=== PATIENT | female | born 1985 | race Caucasian/White ===

== ENCOUNTER 2020-12-21 11:34 | Outpatient (REF) | payer BC, SELFPAY ==
[2020-12-21 12:41] LABS: MANUAL DIFF FLAG NO
[2020-12-21 12:43] LABS: Basophils Percent Auto 0.4 % (0-2); Eosinophils Absolute Auto 0.2 X10*3/uL (0.0-0.4); Eosinophils Percent Auto 2.6 % (0-4); Hematocrit 37.3 % (37-47); Hemoglobin 12.6 g/dl (12.0-16.0); Imm Gran Abs Auto 0.03 X10*3/uL (0.00-0.03); Imm Gran Pct Auto 0.4 % (0.0-0.4); Lymphocytes Absolute Auto 1.7 X10*3/uL (1.2-4.9); Lymphocytes Percent Auto 23.4 % (20-40); Mean Corpuscular HGB Conc 33.8 g/dl (31.0-35.0); Mean Corpuscular Hemoglobin 31.7 pg (27.0-33.0); Mean Corpuscular Volume 93.7 fL (80-98); Mean Platelet Volume 10.3 fL (9.4-12.3); Monocytes Absolute Auto 0.5 X10*3/uL (0.1-1.2); Monocytes Percent Auto 7.1 % (2-11); Neutrophils Absolute Auto 4.7 X10*3/uL (2.0-8.3); Neutrophils Percent Auto 66.1 % (45-73); Platelet Count 277 X10*3/uL (160-400); Red Blood Count 3.98 X10*6/uL (4.20-5.50); Red Cell Distribution Width 12.1 % (11.0-16.0)
[2020-12-21 13:31] LABS: Alanine Aminotransferase 12 U/L (0-31); Albumin Level 4.3 g/dL (3.5-5.0); Alkaline Phosphatase 63 U/L (39-117); Anion Gap 13 (12-20); Aspartate Amino Transferase 16 U/L (5-31); Bilirubin Total 0.6 mg/dL (0.0-1.0); Blood Urea Nitrogen 8 mg/dL (9-16); Calcium 8.7 mg/dL (8.4-10.2); Carbon Dioxide 27 mmol/L (22-29); Chloride 104 mmol/L (96-108); Estimated Glomerular Filt Rate > 60; Glucose Random 84 mg/dL (60-115); Iron 95 mcg/dL (30-160); Percent Iron Saturation 39 % (15-50); Potassium 4.2 mmol/L (3.3-5.1); Sodium 140 mmol/L (135-145); Total Iron Binding Capacity 244 mcg/dL (228-428); Total Protein 7.1 g/dL (6.5-8.0); Unsaturated Iron Binding 149 ug/dL
[2020-12-21 13:35] LABS: Vitamin B12 211 pg/mL (200-900)
[2020-12-21 13:53] LABS: Ferritin 69 ng/mL (10-122); Free T4 (Free Thyroxine) 1.01 ng/dL (0.71-1.85); Thyroid Stimulating Hormone 1.28 uIU/mL (0.32-4.0); Vitamin D 25-OH Total 10.3 ng/mL (>30)
== END 2020-12-21 11:35 | disposition home or self-care (01) ==
LOC: HO.LDS 11:34
PROVIDERS: Visit Provider Internal Medicine
DX: Z00.00 Encounter for general adult medical examination without abnormal findings (principal)
CPT/HCPCS: 36415; 80053; 82306; 82607; 82728; 83540; 84439; 84443; 85025

== ENCOUNTER 2022-12-31 07:15 | Outpatient (REF) | payer BC, SELFPAY ==
--- NOTE | ~2022-12-31 | MR_ITS ---
EXAMINATION: MRI OF THE BRAIN WITHOUT CONTRAST CLINICAL INFORMATION: Altered mental status. COMPARISON: There are no prior studies available for comparison. TECHNIQUE: MRI of the brain was obtained using routine sequences without contrast. FINDINGS: No diffusion abnormalities are identified to suggest an acute or subacute infarct. No mass effect or midline shift is seen. The ventricles and sulci are normal in size. There are a few nonspecific foci of hyperintense T2 and FLAIR signal in the deep white matter. No extra-axial fluid collections are seen. The brainstem and cerebellum are normal. No pathologic magnetic susceptibility artifact is identified on the gradient refocused acquisition. The craniovertebral junction, marrow signal, and midline structures are normal. The major intracranial flow-voids at the level of the hoh of Duran are preserved. The dural venous sinus flow-voids are maintained. There is trace fluid in the inferior mastoid air cells bilaterally. There is mucoperiosteal thickening in the bilateral maxillary, ethmoid and frontal sinuses, and there is opacification/cyst in the sphenoid sinus. MR/MR head/brain wo con IMPRESSION: 1. There are no acute bleeds or infarcts. No masses are demonstrated. 2. There is pansinus disease, most severe in the bilateral ethmoid and sphenoid sinuses.
== END 2022-12-31 07:16 | disposition home or self-care (01) ==
LOC: HO.MRI 07:15
PROVIDERS: PCP Internal Medicine; Visit Provider Internal Medicine
DX: R41.82 Altered mental status, unspecified (principal)
CPT/HCPCS: 70551

== ENCOUNTER 2023-04-29 09:57 | Outpatient (REF) | payer BC, SELFPAY ==
[2023-04-29 13:14] LABS: MANUAL DIFF FLAG NO
[2023-04-29 13:40] LABS: Basophils Absolute Auto 0.1 X10*3/uL (0.0-0.2); Basophils Percent Auto 0.8 % (0-2); Eosinophils Absolute Auto 0.2 X10*3/uL (0.0-0.4); Eosinophils Percent Auto 3.3 % (0-4); Hematocrit 41.3 % (37.0-47.0); Hemoglobin 13.2 g/dl (12.0-16.0); Imm Gran Abs Auto 0.03 X10*3/uL (0.00-0.03); Imm Gran Pct Auto 0.4 % (0.0-0.4); Lymphocytes Absolute Auto 1.4 X10*3/uL (1.2-4.9); Lymphocytes Percent Auto 19.4 % (20-40); Mean Corpuscular Hemoglobin 30.4 pg (27.0-33.0); Mean Corpuscular Volume 95.2 fL (80.0-98.0); Monocytes Absolute Auto 0.6 X10*3/uL (0.1-1.2); Monocytes Percent Auto 7.9 % (2-11); Neutrophils Absolute Auto 4.9 x10*3/uL (2.0-8.3); Neutrophils Percent Auto 68.2 % (45-73); Platelet Count 290 X10*3/uL (160-400); Red Blood Count 4.34 X10*6/uL (4.20-5.50); Red Cell Distribution Width 12.1 % (11.0-16.0); White Blood Count 7.3 X10*3/uL (4.8-10.8)
[2023-04-29 14:00] LABS: Alanine Aminotransferase 21 U/L (0-31); Albumin Level 4.3 g/dL (3.5-5.0); Alkaline Phosphatase 70 U/L (39-117); Anion Gap 14 (12-20); Aspartate Amino Transferase 17 U/L (5-31); Bilirubin Total 0.6 mg/dL (0.0-1.0); Blood Urea Nitrogen 8 mg/dL (9-16); Calcium 9.4 mg/dL (8.4-10.2); Carbon Dioxide 23 mmol/L (22-29); Chloride 108 mmol/L (96-108); Cholesterol 154 mg/dL; Estimated Glomerular Filt Rate > 60; Glucose Random 87 mg/dL (60-115); HDL Cholesterol 51 mg/dL; LDL Cholesterol Calculated 92 mg/dl; Potassium 4.3 mmol/L (3.3-5.1); Sodium 141 mmol/L (135-145); Total Protein 7.6 g/dL (6.5-8.0); Triglycerides 56 mg/dL
[2023-04-29 14:21] LABS: Vitamin D 25-OH Total 35.2 ng/mL (>30)
[2023-04-29 14:26] LABS: Folate 5.9 ng/mL (> or = 4.0); Vitamin B12 359 pg/mL (200-900)
== END 2023-04-29 09:58 | disposition home or self-care (01) ==
LOC: HO.MANLDS 09:57
PROVIDERS: Visit Provider Internal Medicine
DX: Z00.00 Encounter for general adult medical examination without abnormal findings (principal)
CPT/HCPCS: 36415; 80053; 80061; 82306; 82607; 82746; 85025

== ENCOUNTER 2024-11-05 15:56 | Emergency (ER) | payer BC, SELFPAY ==
--- NOTE | ~2024-11-05 | US_ITS ---
CLINICAL HISTORY: bilateral lower leg swelling, DVT Venous duplex ultrasound bilateral lower extremity Comparison: None Findings: The visualized deep veins are fully compressible with normal Doppler color flow and spectral tracings. No popliteal cyst. Limited visualization of the right peroneal veins. IMPRESSION: 1. Negative for bilateral lower extremity deep vein thrombosis of the visualized veins. This document has been electronically signed by: Maria Teresa Ibarra MD on 11/05/2024 18:19:03
[2024-11-05 15:59] VITALS: BP 127/94; PULSE 94; RESP 16; TEMP 36.4; O2SAT 100; BMI 26.8
--- NOTE | 2024-11-05 16:00 | ED.GENADULT ---
HPI - General Adult General Chief complaint: Extremity Problem Stated complaint: feet swelling Time Seen by Provider: 11/05/24 17:37 Source: patient Mode of arrival: ambulatory Limitations: no limitations History of Present Illness ED Provider: Dr. Zuri De Jesus [facility] narrative: Patient comes to emergency room complaining of bilateral lower extremity edema. Patient states that she has no significant pain. denies any chest pain or shortness of breath, denies orthopnea. Patient known to use estrogen since patient recently got a hysterectomy. patient states that she has had issues with extremity edema in the past, patient states that she has been trying to use compression stockings, leg elevation without any relief. Patient has never tried any oral medications Related Data Previous Rx's ?Medication ?Instructions ?Recorded furosemide 40 mg tablet (Lasix) 40 mg PO DAILY #6 tabs 11/05/24 Allergies Allergy/AdvReac Type Severity Reaction Status Date / Time No Known Allergies Allergy Verified 11/05/24 16:03 Review of Systems Review of Systems: Constitutional : No Weight loss, No Fever, No Chills, No Night Sweats, No Fatigue, No Malaise ENT/Mouth : No Hearing loss, No Ear Pain, No Nasal Congestion, No Sinus Pain, No Hoarseness, No sore throat, No Rhinorrhea, No Swallowing Difficulty Eyes: No Eye Pain, No Swelling, No Redness, No Foreign Body, No Discharge, No Vision Changes Cardiovascular : No Chest Pain, No SOB, No Dyspnea on Exertion, No Orthopnea, No Edema, No Palpitations Respiratory : No Cough, No Sputum, No Wheezing, No Smoke Exposure, No Dyspnea Gastrointestinal : No Nausea, No Vomiting, No Diarrhea, No Constipation, No abdominal Pain, No Hematochezia, No Melena Genitourinary : no irregular bleeding, No Dysuria, No Urinary Frequency, No Hematuria, No Urinary Incontinence, No Urgency, No Flank Pain, No Urinary Flow Changes, No Hesitancy Musculoskeletal : complaining of bilateral lower extremity edema especially around the feet,No joint pain, No Myalgias, No Joint Swelling Skin : No Skin Lesions, No rash Neuro : No Weakness, No Numbness, No Paresthesias, No Loss of Consciousness, No Dizziness, No Headache Psych : No Anxiety/Panic, No Depression, No SI/HI/AH/VH, No Social Issues, Heme/Lymph: No Bruising, No Bleeding,No Lymphadenopathy Endocrine : No Polyuria, No Polydipsia, No Temperature Intolerance [facility] Social History Social History Advance Directives: No Advance Directives Information Provided: No Physical Exam ED Vital Signs: Vital Signs - 24 hr 11/05/24 15:59 11/05/24 18:07 Temperature 97.5 F Pulse Rate 94 Respiratory Rate 16 Blood Pressure 127/94 H 127/94 H Pulse Oximetry 100 Oxygen Delivery Method Room Air BMI result Body Mass Index 26.8 Const Other: Appearance: Alert. Oriented X3. No acute distress. Eyes: Pupils equal, round and reactive to light. ENT: Pharynx normal. Neck: Normal inspection. Neck supple. No lymph nodes noted. No crepitus CVS: Normal heart rate and rhythm. Pulses normal. Normal S1 and S2 Respiratory: No respiratory distress. Breath sounds normal. No Wheezing. No rales Abdomen: Soft and nontender. No rigidity. No distention. Skin: Skin warm and dry. Normal skin color. Normal skin turgor. Extremities: +3 lower extremity edema, especially around the feet and a bit around the ankles, minimal calf tenderness to palpation. No Lacerations. No Rash Neuro: Oriented X 3. No motor deficit. No sensory deficit. Moving all extremities. No slurred speech. CN 2 through 12 grossly intact Psych: calm, cooperative, normal affect Course Course Course Narrative: RME performed by Savannah Edouard PA-C. Patient is a 38 year old assigned female at presenting to the emergency department with bilateral foot swelling. Patient states she only has a history of a total hysterectomy for which she is on estrogen. 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 Patient states that she has tried compressing and elevating her lower legs but nothing has made the swelling better. Detailed physical exam and review of systems are deferred to the welfare director. EKG, labs, imaging, and swabs ordered. Patient placed back in the waiting room pending room availability and results. Medications Administered Discontinued Medications Generic Name Dose Route Start Last Admin Trade Name Freq PRN Reason Stop Dose Admin Furosemide 40 mg 11/05/24 17:53 11/05/24 18:07 Furosemide 40 Mg Tablet PO 11/05/24 17:54 40 mg ONCE ONE Administration Protocol Medical Decision Making Medical Decision Making [facility] Narrative: my interpretation of labs: Normal hematology and chemistry, normal BNP ultrasound negative for DVT patient was given p.o. Lasix in the emergency room. Patient's legs were Rakesh wrapped lower extremity likely secondary to venous insufficiency versus medication side effect. CHF is not suspected, Patient instructed to follow-up with the primary care physician Lab Data MDM Lab Attestation statement: I reviewed the patient's lab results. 11/05/24 16:16 11/05/24 16:16 Labs: Lab Results 11/05/24 Range/Units 16:16 WBC 9.7 (4.8-10.8) X10*3/uL RBC 3.97 L (4.20-5.50) X10*6/uL Hgb 12.3 (12.0-16.0) g/dl Hct 36.3 L (37.0-47.0) % MCV 91.4 (80.0-98.0) fL MCH 31.0 (27.0-33.0) pg MCHC 33.9 (31.0-35.0) g/dl RDW 12.3 (11.0-16.0) % Plt Count 277 (160-400) X10*3/uL MPV 9.7 (9.4-12.3) fL Immature Gran % (Auto) 0.4 (0.0-0.4) % Neut % (Auto) 71.0 (45-73) % Lymph % (Auto) 17.9 L (20-40) % Luce % (Auto) 7.2 (2-11) % Eos % (Auto) 2.9 (0-4) % Baso % (Auto) 0.6 (0-2) % Lymph # (Auto) 1.7 (1.2-4.9) X10*3/uL Luce # (Auto) 0.7 (0.1-1.2) X10*3/uL Eos # (Auto) 0.3 (0.0-0.4) X10*3/uL Baso # (Auto) 0.1 (0.0-0.2) X10*3/uL Abs Immat Gran (auto) 0.04 H (0.00-0.03) X10*3/uL Absolute Neuts (auto) 6.9 (2.0-8.3) x10*3/uL Absolute Nucleated RBC 0.000 (0.0-0.012) X10*3/uL Nucleated RBC % (auto) 0.0 (0.0-0.2) /100WBC PT 11.5 (10.9-12.4) SEC INR 1.0 (0.9-1.1) APTT 27.9 (26.0-36.8) SEC Sodium 143 (135-145) mmol/L Potassium 4.3 (3.3-5.1) mmol/L Chloride 108 (96-108) mmol/L Carbon Dioxide 27 (22-29) mmol/L Anion Gap 12 (12-20) BUN 8 L (9-16) mg/dL Creatinine 0.72 (0.5-1.4) mg/dL Estim Creat Clear Calc 139.9 Estimated GFR > 60 Random Glucose 93 (60-115) mg/dL Calcium 8.9 (8.4-10.2) mg/dL Magnesium 2.0 (1.6-2.6) mg/dL Total Bilirubin 0.4 (0.0-1.0) mg/dL AST 46 H (5-31) U/L ALT 54 H (0-31) U/L Alkaline Phosphatase 74 (39-117) U/L B-Natriuretic Peptide 19 (<100) pg/mL Total Protein 7.5 (6.5-8.0) g/dL Albumin 3.9 (3.5-5.0) g/dL Influenza Type A (PCR) NEGATIVE (Negative) Influenza Type B (PCR) NEGATIVE (Negative) RSV RNA Qual (PCR) NEGATIVE (Negative) SARS-CoV-2 RNA (RT-PCR) NEGATIVE (Negative) Independent Interpretation I performed an independent interpretation of an: Ultrasound Interpretation: The visualized deep veins are fully compressible with normal Doppler color flow and spectral tracings. No popliteal cyst. Limited visualization of the right peroneal veins. IMPRESSION: 1. Negative for bilateral lower extremity deep vein thrombosis of the visualized veins. Discharge Plan Discharge Clinical Impression: Lower extremity edema Patient Disposition: Home, Self-Care Instructions: Leg Edema (ED) Additional Instructions: Please follow-up with your primary care physician tomorrow. If you have any worsening or new symptoms, please return to the emergency room or call 911 Prescriptions: New furosemide [Lasix] 40 mg tablet 40 mg PO DAILY Qty: 6 0RF Stand Alone Forms: Work/School Release Print Language: Venezuelan
--- NOTE | 2024-11-05 16:03 | ECG_ITS ---
Test Reason : SWELLING Blood Pressure : */* mmHG Vent. Rate : 84 BPM Atrial Rate : 84 BPM P-R Int : 156 ms QRS Dur : 78 ms QT Int : 370 ms P-R-T Axes : 42 60 39 degrees QTcB Int : 437 ms Normal sinus rhythm Nonspecific ST abnormality Abnormal ECG No previous ECGs available Referred By: Savannah Edouard Electronically Signed By: Andriy Richardson
[2024-11-05 16:26] LABS: MANUAL DIFF FLAG NO
[2024-11-05 16:28] LABS: Basophils Absolute Auto 0.1 X10*3/uL (0.0-0.2); Basophils Percent Auto 0.6 % (0-2); Eosinophils Absolute Auto 0.3 X10*3/uL (0.0-0.4); Eosinophils Percent Auto 2.9 % (0-4); Hematocrit 36.3 % (37.0-47.0); Hemoglobin 12.3 g/dl (12.0-16.0); Imm Gran Abs Auto 0.04 X10*3/uL (0.00-0.03); Imm Gran Pct Auto 0.4 % (0.0-0.4); Lymphocytes Absolute Auto 1.7 X10*3/uL (1.2-4.9); Lymphocytes Percent Auto 17.9 % (20-40); Mean Corpuscular HGB Conc 33.9 g/dl (31.0-35.0); Mean Corpuscular Volume 91.4 fL (80.0-98.0); Mean Platelet Volume 9.7 fL (9.4-12.3); Monocytes Absolute Auto 0.7 X10*3/uL (0.1-1.2); Monocytes Percent Auto 7.2 % (2-11); Neutrophils Absolute Auto 6.9 x10*3/uL (2.0-8.3); Platelet Count 277 X10*3/uL (160-400); Red Blood Count 3.97 X10*6/uL (4.20-5.50); Red Cell Distribution Width 12.3 % (11.0-16.0); White Blood Count 9.7 X10*3/uL (4.8-10.8)
[2024-11-05 16:34] LABS: Prothrombin Time 11.5 SEC (10.9-12.4)
[2024-11-05 16:37] LABS: Partial Thromboplastin Time 27.9 SEC (26.0-36.8)
[2024-11-05 17:04] LABS: Alanine Aminotransferase 54 U/L (0-31); Albumin Level 3.9 g/dL (3.5-5.0); Anion Gap 12 (12-20); Aspartate Amino Transferase 46 U/L (5-31); Bilirubin Total 0.4 mg/dL (0.0-1.0); Blood Urea Nitrogen 8 mg/dL (9-16); Calcium 8.9 mg/dL (8.4-10.2); Carbon Dioxide 27 mmol/L (22-29); Chloride 108 mmol/L (96-108); Creatinine Clr Calc Pharmacy 139.9; Estimated Glomerular Filt Rate > 60; Glucose Random 93 mg/dL (60-115); Potassium 4.3 mmol/L (3.3-5.1); Sodium 143 mmol/L (135-145); Total Protein 7.5 g/dL (6.5-8.0)
[2024-11-05 17:35] LABS: Alkaline Phosphatase 74 U/L (39-117)
[2024-11-05 17:39] LABS: Influenza A PCR NEGATIVE (Negative); Influenza B PCR NEGATIVE (Negative); Resp Syncy Virus RNA Qual PCR NEGATIVE (Negative); SARS COV2 PCR INHOUSE NEGATIVE (Negative)
[2024-11-05 18:07] VITALS: BP 127/94
[2024-11-05] MEDS: Furosemide 40 MG TABLET PO (18:07)
[2024-11-05 18:53] LABS: B Type Natriuretic Peptide 19 pg/mL (<100)
[2024-11-05 19:44] VITALS: BP 127/94; PULSE 84; RESP 16; TEMP 36.8; O2SAT 98
== END 2024-11-05 19:44 | disposition home or self-care (01) ==
PROVIDERS: Physician Assistant Medical; Emergency Provider Emergency Medicine; PCP Internal Medicine
DX: R60.0 Localized edema (principal); Z03.818 Encounter for observation for suspected exposure to other biological agents ruled out; M79.662 Pain in left lower leg; M79.661 Pain in right lower leg; Z90.710 Acquired absence of both cervix and uterus; Z79.890 Hormone replacement therapy
CPT/HCPCS: 0241U; 80053; 83735; 83880; 85025; 85610; 85730; 93005; 93970; 99283; 99284

== ENCOUNTER → 2024-11-05 16:03 | Outpatient (BNV) | payer BC, SELFPAY | PROVIDERS: Emergency Provider Emergency Medicine; PCP Internal Medicine; Visit Provider Radiology Diagnostic Radiology | DX: R22.43 Localized swelling, mass and lump, lower limb, bilateral (principal) | CPT/HCPCS: 93970 ==

== ENCOUNTER → 2024-11-05 16:03 | Outpatient (BNV) | payer BC, SELFPAY | PROVIDERS: Emergency Provider Emergency Medicine; PCP Internal Medicine; Visit Provider Internal Medicine Cardiovascular Disease | DX: R94.31 Abnormal electrocardiogram [ECG] [EKG] (principal); R22.9 Localized swelling, mass and lump, unspecified | CPT/HCPCS: 93010 ==

== ENCOUNTER 2025-07-22 07:42 | Outpatient (REF) | payer BC, SELFPAY ==
--- NOTE | ~2025-07-22 | XR_ITS ---
EXAMINATION: XR SACRUM AND COCCYX CLINICAL INFORMATION: SACROCOCCYGEAL DISPRDER COMPARISON: None available. TECHNIQUE: 2 views of the sacrum and 2 views of the coccyx were obtained. FINDINGS: There is normal symmetric bilateral SI joints. No visible acute fracture, dislocation or lytic process involving the sacrum or visualized pelvic bones. The soft tissues are normal. There is minimal levoscoliosis or positional lumbosacral joint. XR/XR sacrum coccyx min 2V IMPRESSION: Mild levoscoliosis lumbosacral joint. No visible acute fracture or dislocation involving sacrum. SI joints are normal. Electronically signed by: Frederick Lindsay MD 07/24/2025 07:22 AM EDT
--- OUTSIDE RECORDS SUMMARY | 2025-07-22 07:45 | XMS_ITS | Encounter Summary ---
Author Organization [facility] Address [address] [place] [phone] Phone Care Team Providers Care Sheet Folder Name Role Phone Amarilis Giovanni Mcmullen DO Unavailable Javier Soriano MD Unavailable Giovanni Olmos DO Primary Care Provider [phone] Encounter Details Date Type Department Care Team (Late st Contact Info) Description 11/30/2018 Ancillary Orders [facility], X-Ray - [facility] [address] [place] [address] Maegan Johnston, TAMELA 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 Mild soft tissue swelling in the lower prepatellar and infrapatellar soft tissues could be related to soft tissue contusion and needs clinical correlation. POS - [id number] Narrative 11/30/2018 6:49 PM EST HISTORY: Bilateral knee pain after falling on ice. COMPARISON: None FINDINGS: 4 views of both knees were performed. No fracture or malalignment detected. Trace joint effusions without evidence of lipohemarthrosis. Mild soft tissue swelling in the lower prepatellar and infrapatellar soft tissues bilaterally. Joint spaces are preserved. No destructive bone lesion. No abnormal soft tissue calcifications. Procedure Note Ranjith Malik MD - 11/30/2018 HISTORY: Bilateral knee pain after falling on ice. COMPARISON: None FINDINGS: 4 views of both knees were performed. No fracture or malalignment detected. Trace joint effusions withoutevidence of lipohemarthrosis. Mild soft tissue swelling in the lowerprepatellar and infrapatellar soft tissues bilaterally. Joint spaces arepreserved. No destructive bone lesion. No abnormal soft tissuecalcifications. IMPRESSION: No fracture detected. Mild soft tissue swelling in the lower prepatellarand infrapatellar soft tissues could be related to soft tissue contusionand needs clinical correlation. POS - [id number] December Vickie RAPP IMG XR LOWER EXTREMITY Final Result documented in this encounter Visit Diagnoses Diagnosis Right knee pain, unspecified chronicity Left knee pain, unspecified chronicity Right knee pain, unspecified chronicity Left knee pain, unspecified chronicity documented in this encounter Care Teams Sheet Folder Relationship Specialty Start Date End Date Giovanni Olmos DO [address] [place] [address], [place] [address] PCP - General 10/01/17 Giovanni Olmos DO [address] [facility] [place] [address] [email or web address] Historical LMR Provider 07/16/17 10/05/21 Javier Soriano MD [address] [place] [id number] [email or web address] Historical LMR Provider 07/16/17 10/05/21 documented as of this encounter Additional Source Comments The information contained in this document represents components of the legal health record. It is not the complete legal health record.[facility]
--- OUTSIDE RECORDS SUMMARY | 2025-07-22 07:45 | XMS_ITS | Encounter Summary ---
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 Not on file Not on file student Not on file Not on file Not on file documented as of this encounter Plan of Treatment Not on file documented as of this encounter Visit Diagnoses Not on filedocumented in this encounter Care Teams Joiners Supervisor Relationship Specialty Start Date End Date Giovanni Olmos DO [address] [facility], [facility] [address] [place] [address] PCP - General 10/01/17 Giovanni Olmos DO [address] [place] [address] [place] [address] Historical LMR Provider 07/16/17 10/05/21 Javier Soriano MD [address] [facility] [address] [place] [address] Historical LMR Provider 07/16/17 10/05/21 documented as of this encounter Additional Source Comments The information contained in this document represents components of the legal health record. It is not the complete legal health record.[facility]
--- OUTSIDE RECORDS SUMMARY | 2025-07-22 07:45 | XMS_ITS | Clinical Summary ---
Author Organization [facility] Address [address] [place] [id number] Phone Care Team Providers Care Transverse Abdominal Muscle Nurse Name Role Phone Damariangie Giovanni Mcmullen DO Primary Care Provider [phone] Allergies No known active allergies Medications LORazepam (ATIVAN) 0.5 MG tablet Take 1 tablet by mouth 3 (three) times a day as needed. Active acetaminophen (TYLENOL) 325 mg tablet Take 2 tablets (650 mg total) by mouth every 6 (six) hours as needed. 06/16/2024 Active ibuprofen (ADVIL,MOTRIN) 200 MG tablet Take 3 tablets (600 mg total) by mouth every 6 (six) hours as needed for pain (specific location in comments). 06/16/2024 Active estradioL (ESTRACE) 0.5 MG tabletIndicatio ns:Surgical menopause Take 1 tablet (0.5 mg total) by mouth daily. 30 tablet 3 05/02/2025 Active Active Problems Problem Noted Date Diagnosed Date Pelvic floor tension 01/18/2025 Overview (01/18/2025): needing to splint to achieve a bowel movement since with delivery 14 years ago Tension of pelvic floor on exam left greater than right Assessment & Plan (01/18/2025 5:44 PM EDT): May benefit from learning techniques more to relax the pelvic floor that might facilitate easier bowel habits. Also suggest elevating feet on a stool when trying to have a bowel movement. Lower abdominal pain 01/18/2025 Overview (01/18/2025): Pain does not localize to the pelvic on bimanual exam. Pelvic floor is nontender though there may be some tension left more than right Assessment & Plan (01/18/2025 5:43 PM EDT): Suspect this is more musculoskeletal in origin, she will follow-up with her primary for that. 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 Thacker; voids on a schedule to prevent retention Resolved Problems Problem Noted Date Diagnosed Date Resolved Date Endometriosis 05/24/2024 01/18/2025 Overview (08/03/2024): Seen at time of laparoscopic bilateral salpingectomy. Scheduled for hysterectomy and BSO 06/16/2024: Performed. Pain resolved at time of post-op visit Current mild episode of may r depressive disorder without prior episode 04/14/2023 04/14/2023 3 Moderate recurrent major depression 02/28/2022 04/14/2023 IUD (intrauterine device) in place 05/28/2018 02/05/2023 Overview (05/28/2018): Mirena 05/28/18 Immunizations Immunization Administration Dates Next Due COVID-19 (Pre-07/20) Moderna Vaccine, mRNA, PF 12/16/2020,11/25/2020,11/14/2020 INFLUENZA, SPLIT VIRUS, TRIV ALENT W/ PRESERVATIVE IM 08/09/2010,08/09/2010 Influenza Quadrivalent w/ Preservative IM 2019 Influenza, Unspecified Formulation 07/31/2022, MMR 03/31/2013 Tdap 12/27/2020,01/18/2013,09/28/2010 Family History Medical History Relation Comments Cardiovascular disease Father Hypertension Father No Known Problems Mother Premature Son on spectrum due to being premature @ 28wks Relation Status Comments Brother Alive Father Alive Mother Alive Son Alive Social History Tobacco Use Types Packs/Day Years Used Date Smoking Tobacco: Never Smokeless Tobacco: Never Tobacco Cessation:Counseling Given: Not Answered Alcohol Use Standard Drinks/Week Comments No 0 (1 standard drink = 0.6 oz pur e alcohol) Education Answer Date Recorded Are you interested in more education? Not on joseph e 01/23/2023 Are you concerned about learning? Not on file 01/23/2023 No 01/23/2023 No 01/23/2023 Digital Access Answer Date Recorded No 02/18/2023 No 02/18/2023 Reliable internet access at home? Not on file 02/18/2023 Device with a working camera? Not on file Intimate Partner Violence Answer Date R ecorded Are you denied basic needs s uch as food, clothing, or medical care? No 06/16/2024 In the past 12 months have y ou been in a relationship with a person who hurts, threatens, or tries to control you? No 06/16/2024 Are you denied basic needs s uch as food, clothing, or medical care? No 06/16/2024 In the past 12 months have y ou been in a relationship with a person who hurts, threatens, or tries to control you? 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 on file Not on file student Not on file Not on file Not on file Last Filed Vital Signs Vital Sign Reading Time Taken Comments Blood Pressure 109/77 01/24/2025 5:06 PM EDT Pulse 84 01/24/2025 5:06 PM EDT Temperature 36.9 C (98.4 F) 01/24/2025 5:06 PM EDT Respiratory Rate 18 01/24/2025 5:06 PM EDT Oxygen Saturation 100% 01/24/2025 5:06 PM EDT Inhaled Oxygen Concentration - - Weight 92.5 kg (204 lb) 01/24/2025 5:06 PM EDT Height 182.9 cm (6') 01/24/2025 5:06 PM EDT Body Mass Index 27.67 01/24/2025 5:06 PM EDT Plan of Treatment Health Maintenance Due Date Last Done Comments DEPRESSION SCREENING 1999 HEPATITIS C SCREENING 11/27/2005 HIV ONE-TIME SCREENING (18-65 YEARS) 11/27/2005 SCREENING FOR DIABETES 11/27/2022 INFLUENZA VACCINE (#1) 2025 , 05/29/2020, 07/17/2019, Additional history exists COVID-19 VACCINE ( season) 2025 12/16/2020, 11/25/2020, 11/14/2020, Additional history exists PAP SMEAR 02/05/2026 02/05/2023, 06/29, 07/26/2018 Adult Td,Tdap Booster 12/27/2030 12/27/2020 , 01/18/2013, 09/28/2010 SMOKING STATUS SCREENING (Once After 26 Yrs) Completed 01/18/2025 HEPATITIS A VACCINES Aged Out No long er eligible based on patient's age to complete this topic HIB VACCINES Aged Out No longer eligi ble based on patient's age to complete this topic MENINGOCOCCAL VACCINES (ACWY) Aged Out No longer eligible based on patient's age to complete this topic MENINGOCOCCAL VACCINES (B) Aged Out N o longer eligible based on patient's age to complete this topic PNEUMOCOCCAL VACCINES (0-49 years) Aged Out No longer eligible based on patient's age to complete this topic Medical Devices Not on file Procedures Procedure Name Priority Date/Time Associated Diagnosis Comments PAP TEST Routine 02/05/2023 12:00 AM EDT from Last 3 Months or Most Recently Relevant to Health Maintenance Results * Pap Test (02/05/2023 12:00 AM EDT) 02/05/2023 02/06/2023 9:1 5 AM EDT Narrative SEE NARRATIVE - 02/11/2023 1:05 PM EDT [address] [address] Supervisor Of Research: Gisell Gagnon MD WARPING MACHINE OPERATOR Cytology Report FINAL DIAGNOSIS A. PAP SMEAR (SUREPATH) CE: SPECIMEN ADEQUACY: Satisfactory for evaluation; transformation zone absent/insufficient. INTERPRETATION: NEGATIVE FOR INTRAEPITHELIAL LESION OR MALIGNANCY. Electronically Signed Out By: OLIVIA Petersen(ASCP) OLIVIA Plascencia(ASCP) The Pap test is a screening test primarily for squamous cancers and precursors and has associated false-negative and false-positive results. New technologies such as liquid-based preparations may decrease but will not eliminate all false-negative results. Regular sampling and follow-up of unexplained clinical signs and symptoms are recommended to minimize false negative results. PROCEDURES/ADDENDA HPV Testing (Requested) Ordered Date: 02/06/2023 A. PAP SMEAR (SUREPATH) CE: Human Papilloma Virus Test NEGATIVE for high-risk Human Papilloma Virus types 16, 18, 45 and the Other high risk probe set (Includes 31, 33, 35, 39, 51, 52, 56, 58, 59, 66, 68) Note: Testing performed by [facility] HR-HPV analysis. Clinical correlation is advised. This HPV test was performed at [facility], [address] [place] [address]. This test has been FDA approved for SurePath cervical cytology specimens. The accuracy and precision of this test for all other specimen sources has been verified in the Cytopathology Laboratory of the [facility] and has not been cleared or approved by the U.S. Food and Drug Administration. Clinical correlation is advised. CLINICAL HISTORY Date of Last Menstrual Period: Not Provided Menstrual History: Unknown Other: OLIGOMENORRHEIC DUE TO IUD Contraceptive History: Mirena Other Clinical Conditions: Screening Pap SPECIMEN SOURCE A: PAP SMEAR (SUREPATH) CE Patient Name: CARO ALLEN : 1985 (Age: 37) Sex: F [facility] Date of Collection: 02/05/2023 Date of Reported: 02/11/2023 13:05 Results to: Javier Soriano MD Javier Soriano MD CYTOLOGY ORDERABLES Final Result SEE NARRATIVE from Last 3 Months or Most Recently Relevant to Health Maintenance Insurance [facility] Advance Directives For more information, please contact: [phone] (9AM - 5PM [facility], Thursday-Thursday) Documents on File Type Date Recorded Patient Head Bellhop Captain Expl anation Healthcare Proxy 06/17/2024 3:01 PM * Full Code (Latest Code Status on File) Date Activated Date Inactivated Comments 06/16/2024 9:58 AM Question Answer Comments Code Status Confirmed With: Patient * Full Code Date Activated Date Inactivated Comments 04/21/2023 8:05 AM 06/16/2024 9:58 AM Question Answer Comments Code Status Confirmed With: Patient Care Teams Transverse Abdominal Muscle Nurse Relationship Specialty Start Date End Date Giovanni Olmos DO PCP - General 10/01/17 Additional Source Comments The information contained in this document represents components of the legal health record. It is not the complete legal health record.[facility]
--- OUTSIDE RECORDS SUMMARY | 2025-07-22 07:45 | XMS_ITS | Encounter Summary ---
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 Not on file Not on file Not on file student Not on file Not on file Not on file documented as of this encounter Plan of Treatment Not on file documented as of this encounter Visit Diagnoses Not on filedocumented in this encounter Care Teams Forms Builder Relationship Specialty Start Date End Date Giovanni Olmos DO [address] [facility], [facility] [address] [place] [address] PCP - General 10/01/17 Giovanni Olmos DO [address] [place] [address] [place] [address] Historical LMR Provider 07/16/17 10/05/21 Javier Soriano MD 22 [facility] [address] [place] [address] Historical LMR Provider 07/16/17 10/05/21 documented as of this encounter Additional Source Comments The information contained in this document represents components of the legal health record. It is not the complete legal health record.[facility]
--- OUTSIDE RECORDS SUMMARY | 2025-07-22 07:45 | XMS_ITS | Encounter Summary ---
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 on file Not on file student Not on file Not on file Not on file documented as of this encounter Plan of Treatment Not on file documented as of this encounter Visit Diagnoses Not on filedocumented in this encounter Care Teams Mathematics Department Chair Relationship Specialty Start Date End Date Giovanni Olmos DO 22 [facility], [facility] [address] [place] [address] PCP - General 10/01/17 Giovanni Olmos DO [address] [place] [address] [place] [address] Historical LMR Provider 07/16/17 10/05/21 Javier Soriano MD 22 [facility] [address] [place] [address] Historical LMR Provider 07/16/17 10/05/21 documented as of this encounter Additional Source Comments The information contained in this document represents components of the legal health record. It is not the complete legal health record.[facility]
--- OUTSIDE RECORDS SUMMARY | 2025-07-22 07:45 | XMS_ITS | Data Portability ---
Author Organization [facility] Telehealth Patient Home Address [address] [facility] [place] [address] Assessment Encounter Date Assessment Date Assessment LastModified by Organization Details LastModified Time 12/21/2023 12/21/2023 [id number] [place] [id number] (WATER QUALITY SPECIALIST) MDM MODERATE MUST MEET 2 OUT OF 3 ELEMENTS: PROBLEMS, DATA OR RISK ELEMENT 1: PROBLEMS ADDRESSED 1 OR MORE CHRONIC ILLNESS WITH EXACERBATION OR 2 OR MORE STABLE CHRONIC ILLNESSES OR 1 UNDIAGNOSED NEW PROBLEM OR 1 ACUTE ILLNESS W/SYMPTOMS OR 1 ACUTE COMPLICATED INJURY ELEMENT 2: DATA MUST MEET 1 OF 3 CATEGORIES CATEGORY 1: REVIEW OF PRIOR EXTERNAL NOTES, REVIEW OF RESULTS, ORDERING OF EACH TEST, ASSESSMENT REQUIRING INDEPENDENT HISTORIAN OR CATEGORY 2: INDEPENDENT INTERPRETATION OF TESTS BY ANOTHER PHYSICIAN OR SPECIALIST OR CATEGORY 3: DISCUSSION OF MGT OR TEST INTERPRETATION W/EXTERNAL PHYSICIAN OR SPECIALIST ELEMENT 3: RISK RISK OF COMPLICATIONS AND/OR MORBIDITY OR MORTALITY OF PATIENT MANAGEMENT PROVIDER MUST THOROUGHLY DOCUMENT EACH ELEMENT THAT IS COVERED Not available 12/21/2023 11:57:55 08/23/2024 08/23/2024 [id number] [place] [id number] (WATER QUALITY SPECIALIST) : MDM LOW MUST MEET 2 OF 3 ELEMENTS: PROBLEMS, DATA OR RISK ELEMENT 1: PROBLEMS ADDRESSED (LOW): 2 OR MORE SELF-LIMITED OR MINOR PROBLEMS OR 1 STABLE CHRONIC ILLNESS OR 1 ACUTE UNCOMPLICATED ILLNESS OR INJURY ELEMENT 2: DATA TO BE REVISED AND ANALYZED (LOW) MUST MEET 1 OF 2 CATEGORIES: CATEGORY 1. REVIEW OF PRIOR EXTERNAL NOTES/RESULTS, ORDERING OF TEST(S) CATEGORY 2. ASSESSMENT REQUIRING INDEPENDENT HISTORIAN(S) INCLUDE WHO THE HISTORIAN IS AND RELATION TO PT AND WHY PT IS UNABLE TO GIVE COMPLETE HISTORY ELEMENT 3: RISK (LOW) RISK OF COMPLICATIONS AND/OR MORBIDITY OR MORTALITY OF PATIENT MANAGEMENT PROVIDER MUST THOROUGHLY DOCUMENT ALL OF THE ELEMENTS COVERED Not available 08/23/2024 16:16:23 03/01/2025 03/01/2025 [id number] [place] [id number] (WATER QUALITY SPECIALIST) : MDM LOW MUST MEET 2 OF 3 ELEMENTS: PROBLEMS, DATA OR RISK ELEMENT 1: PROBLEMS ADDRESSED (LOW): 2 OR MORE SELF-LIMITED OR MINOR PROBLEMS OR 1 STABLE CHRONIC ILLNESS OR 1 ACUTE UNCOMPLICATED ILLNESS OR INJURY ELEMENT 2: DATA TO BE REVISED AND ANALYZED (LOW) MUST MEET 1 OF 2 CATEGORIES: CATEGORY 1. REVIEW OF PRIOR EXTERNAL NOTES/RESULTS, ORDERING OF TEST(S) CATEGORY 2. ASSESSMENT REQUIRING INDEPENDENT HISTORIAN(S) INCLUDE WHO THE HISTORIAN IS AND RELATION TO PT AND WHY PT IS UNABLE TO GIVE COMPLETE HISTORY ELEMENT 3: RISK (LOW) RISK OF COMPLICATIONS AND/OR MORBIDITY OR MORTALITY OF PATIENT MANAGEMENT PROVIDER MUST THOROUGHLY DOCUMENT ALL OF THE ELEMENTS COVERED Not available 03/01/2025 16:41:04 04/05/2025 04/05/2025 [id number] [place] [id number] (WATER QUALITY SPECIALIST) : MDM LOW MUST MEET 2 OF 3 ELEMENTS: PROBLEMS, DATA OR RISK ELEMENT 1: PROBLEMS ADDRESSED (LOW): 2 OR MORE SELF-LIMITED OR MINOR PROBLEMS OR 1 STABLE CHRONIC ILLNESS OR 1 ACUTE UNCOMPLICATED ILLNESS OR INJURY ELEMENT 2: DATA TO BE REVISED AND ANALYZED (LOW) MUST MEET 1 OF 2 CATEGORIES: CATEGORY 1. REVIEW OF PRIOR EXTERNAL NOTES/RESULTS, ORDERING OF TEST(S) CATEGORY 2. ASSESSMENT REQUIRING INDEPENDENT HISTORIAN(S) INCLUDE WHO THE HISTORIAN IS AND RELATION TO PT AND WHY PT IS UNABLE TO GIVE COMPLETE HISTORY ELEMENT 3: RISK (LOW) RISK OF COMPLICATIONS AND/OR MORBIDITY OR MORTALITY OF PATIENT MANAGEMENT PROVIDER MUST THOROUGHLY DOCUMENT ALL OF THE ELEMENTS COVERED Not available 04/05/2025 11:35:56 06/12/2025 06/12/2025 [id number] [place] [id number] (WATER QUALITY SPECIALIST) MDM MODERATE MUST MEET 2 OUT OF 3 ELEMENTS: PROBLEMS, DATA OR RISK ELEMENT 1: PROBLEMS ADDRESSED 1 OR MORE CHRONIC ILLNESS WITH EXACERBATION OR 2 OR MORE STABLE CHRONIC ILLNESSES OR 1 UNDIAGNOSED NEW PROBLEM OR 1 ACUTE ILLNESS W/SYMPTOMS OR 1 ACUTE COMPLICATED INJURY ELEMENT 2: DATA MUST MEET 1 OF 3 CATEGORIES CATEGORY 1: REVIEW OF PRIOR EXTERNAL NOTES, REVIEW OF RESULTS, ORDERING OF EACH TEST, ASSESSMENT REQUIRING INDEPENDENT HISTORIAN OR CATEGORY 2: INDEPENDENT INTERPRETATION OF TESTS BY ANOTHER PHYSICIAN OR SPECIALIST OR CATEGORY 3: DISCUSSION OF MGT OR TEST INTERPRETATION W/EXTERNAL PHYSICIAN OR SPECIALIST ELEMENT 3: RISK RISK OF COMPLICATIONS AND/OR MORBIDITY OR MORTALITY OF PATIENT MANAGEMENT PROVIDER MUST THOROUGHLY DOCUMENT EACH ELEMENT THAT IS COVERED Not available 06/12/2025 12:19:19 Plan of Treatment Reminders Order Date Submit Date Provider Last Modified By Organization Details Last Modified Time Details Appointments FOLLOW UP 2024 11:45A M DR MEZA Not available Not available Not available FOLLOW UP 2025 10:30A M DR MEZA Not available Not available Not available Lab None recorded. Referral None recorded. Procedures None recorded. Surgeries None recorded. Imaging None recorded. Medication Orders dextroamp hetamine- amphetami ne ER 20 mg 24hr capsule,e xtend release 2024 025 [facility]acy #2024, [address] [place] [address], [id number], 06/12/2025 12:22:27 dextroamp hetamine- amphetami ne 10 mg tablet 2024 025 [place] [address] [facility]2024, [address] [place] [address], [id number], 06/12/2025 12:15:29 dextroamp hetamine- amphetami ne 10 mg tablet 2024 025 [facility] [address] [place] [address], [id number], 06/12/2025 12:15:29 desvenlaf axine succinate ER 50 mg tablet,ex tended release 24 hr 2023 024 [email or web address] [facility] #2024, [address] [place] [address], [id number], 03/01/2025 16:14:45 lorazepam 0.5 mg tablet 2023 024 [email or web address] [facility] #2024, [address] [place] [address], [id number], 03/01/2025 16:15:02 Patient TargetsNo targets recorded. Patient Instructions Encounter Date Encounter Id Patient Instructions Last Modified By Organization Details Last Modified Time 12/21/2023 [id number] chronic sinusiti s: care instructions [facility] Not available 12/21/2023 11:57:03 03/01/2025 [id number] attention defici t hyperactivity disorder (ADHD) in adults: care instructions [facility] Not available 03/01/2025 16:43:07 06/12/2025 [id number] seasonal allergies: care instructions [facility] Not available 06/12/2025 12:22:22 learning about mood disorders [email or web address] Not available 06/12/2025 12:22:22 Reason for Referral None Reported. Results Created Date Observation Date Name Description Value Unit Range Abnormal Flag Note LastModifiedBy Organization Detail LastModifiedTime 11/05/1911/05/2024 US, carie x, dinora s, [facility] mity No observ ation record ed. [email or web address] [facility] (Medical Records) [address] [place] [address], [address], 11/05/2024 18:47:47 Result Notes None recorded. Problems Name Problem SNOMED Code Status Onset Date Resolution Date Notes Provider Name and Address Organization Details Recorded Time Deafness of right ear 513895549 Active [address] [facility] 8 11:36:31 Hearing loss in left ear [id number] 9106 Active [address] [facility] 8 11:36:46 Neurogeni c urinary bladder 261347869 Active [address] [facility] 8 11:37:46 Bilateral knee pain Active 2018 Giovanni Meza DO [address] [place] [address], [address], [facility] 1 09:32:31 Anxiety 79710161 Active 2019 Giovanni Meza DO [address] [place] [address], [address], [facility] 0 16:25:39 Seasonal allergic rhinitis 327426692 Active 2020 Giovanni Meza, DO [address] [place] [address], [address], [facility] 1 09:34:39 Allergic rhinitis 78934412 Active 2021 Giovanni Meza, DO [address] [place] [address], [address], [facility] 2 14:13:49 Moderate recurrent major depressio n 12845748 Active 2021 Giovanni Meza, DO [address] [place] [address], [address], [facility] 2 14:14:19 Cystic acne 52436594 Active 2021 HARESH SANTANA [address] [place] [address], [address], [facility] 2 15:23:49 Vertigo 050786780 Active 2022 HARESH SANTANA [address] [place] [address], [address], [facility] 3 11:23:58 Headache 60369354 Active 2022 HARESH SANTANA [address] [place] [address], [address], [facility] 3 11:28:38 Altered mental status 297714396 Active 2022 Giovanni Meza, [address] [place] [address], [address], [facility] 3 09:15:27 Ataxia 79269224 Active 2022 Giovanni Meza DO [address] [place] [address], [address], [facility] 3 12:07:21 Transient altered mental status 233470858 Active 2022 Giovanni Meza DO [address] [place] [address], [address], [facility] 3 12:07:35 Chronic sinusitis 93441571 Active 2022 Giovanni Meza, DO [address] [place] [address], [address], [facility] 3 22:16:05 Acute urinary tract infection 833328035 Active 2022 HARESH SANTANA [address] [place], [address], [facility] 3 09:03:47 Menopausa l symptom 17930998 Active 2023 Giovanni Meza, DO [address] [place] [address], [address], [facility] 4 16:16:46 Attention deficit hyperacti vity disorder, predomina ntly inattenti ve type 05761403 Active 2024 Giovanni Meza DO [address] [place] [address], [address], [facility] 5 16:39:37 Depressed mood 187105456 Active 2024 Giovanni Meza DO [address] [place] [address], [address], [facility] 5 23:02:15 Pain in coccyx 79017578 Active 2024 Giovanni Meza DO [address] [place] [address], [address], [facility] 5 22:19:01 Notes:bilateral vestibular a queduct syndrome Problem Notes None recorded. Medical Equipment None Reported. Allergies Allergen ID Allergen Name Allergen Category Reaction Reaction Severity Criticality Documentation Date Start Date Code Code System Note Provider Name and Address Organization Details Recorded Time 4558 mirtazapi ne medicatio n swelling Not available Not available 03/04/2021 08100 RxNorm Giovanni Meza DO [address] [place] [address], [address], [facility] 1 15:51:53 Medications Name Sig Start Date Stop Date Status Note LastModified by Organization Details LastModified Time furosemide 40 mg tablet TAKE 1 TABLET BY MOUTH DAILY 03/01 completed Not Available Not Available Not Available Mirena 21 mcg/24 hr (up to 8 years) 52 mg intrauteri ne device Take by intrauter ine route. 04/29 completed Not Available Not Available Not Available ivermectin 3 mg tablet TAKE 4 TABLETS (12 MG) BY ORAL ROUTE ONCE DAILY FOR 14 DAYS FOR PRESUMED SCABIES INFESTATI ON 12/20 completed Not Available Not Available Not Available prednisone 10 mg tablet 05/20 completed Not Available Not Available Not Available doxycyclin e hyclate 100 mg capsule TAKE 1 CAPSULE BY MOUTH TWICE A DAY FOR 10 DAYS 08/02 completed Not Available Not Available Not Available dextroamph etamine-am phetamine 10 mg tablet TAKE 1 TABLET BY MOUTH EVERY DAY FOR 30 DAYS 06/12 completed Not Available Not Available Not Available desogestre l-ethinyl estradiol 0.1 mg/0.125 mg/0.15 mg-25 mcg tablet Take 1 tablet every day by oral route for 28 days. 03/01 completed Not Available Not Available Not Available meclizine 12.5 mg tablet TAKE 2 TABLETS BY MOUTH 3 TIMES A DAY NEEDED FOR 14 DAYS. 04/29 completed Not Available Not Available Not Available sulfametho xazole 800 mg-trimeth oprim 160 mg tablet TAKE 1 TABLET BY MOUTH EVERY 12 HOURS FOR 7 DAYS 04/29 completed Not Available Not Available Not Available lorazepam 0.5 mg tablet TAKE 1 TABLET BY MOUTH THREE TIMES A DAY NEEDED 03/01 completed Not Available Not Available Not Available estradiol 0.075 mg/24 hr weekly transderma l patch APPLY 1 PATCH ONCE A WEEK 08/23 completed Not Available Not Available Not Available dextroamph etamine-am phetamine ER 20 mg 24hr capsule,ex tend release TAKE 1 CAPSULE BY MOUTH EVERY DAY active Not Available Not Available No t Available cephalexin 500 mg capsule Take 1 capsule 3 times a day by oral route for 7 days. 04/06 completed Not Available Not Available Not Available oseltamivi r 75 mg capsule Take 1 capsule every day by oral route for 14 days. 02/28 completed Not Available Not Available Not Available mirtazapin e 15 mg tablet Take 1 tablet every day by oral route for 30 days. 03/04 completed leg edema Not Available Not Available Not Available estradiol 0.5 mg tablet TAKE 1 TABLET BY MOUTH EVERY DAY active Not Available Not Available No t Available lorazepam 1 mg tablet TAKE 1 TABLET BY MOUTH THREE TIMES A DAY NEEDED FOR 14 DAYS 04/29 completed Not Available Not Available Not Available methylpred nisolone 4 mg tablets in a dose pack 04/21 completed Not Available Not Available Not Available fluticason e propionate 50 mcg/actuat ion nasal spray,susp ension SPRAY 2 SPRAYS INTO EACH NOSTRIL EVERY DAY FOR 30 DAYS 04/29 completed Not Available Not Available Not Available doxycyclin e hyclate 100 mg tablet TAKE 1 TABLET BY MOUTH TWICE A DAY 12/02 completed Not Available Not Available Not Available estradiol 0.1 mg/24 hr weekly transderma l patch APPLY 1 PATCH ONCE A WEEK 03/01 completed Not Available Not Available Not Available naproxen 500 mg tablet Take 1 tablet twice a day by oral route as needed for 30 days. 05/20 completed Not Available Not Available Not Available amoxicilli n 875 mg-potassi um clavulanat e 125 mg tablet 05/20 completed Not Available Not Available Not Available oxycodone 5 mg tablet TAKE 1 TABLET BY MOUTH EVERY 4 HOURS NEEDED 08/23 completed Not Available Not Available Not Available clindamyci n 1 % lotion APPLY THIN COAT TO AFFECTED AREA TWICE A DAY 12/20 completed Not Available Not Available Not Available escitalopr am 10 mg tablet TAKE 1 TABLET BY MOUTH EVERY DAY 05/20 completed Not Available Not Available Not Available alfuzosin ER 10 mg tablet,ext ended release 24 hr Take 1 tablet every day by oral route for 90 days. 12/21 completed Not Available Not Available Not Available nitrofuran toin monohydrat e/macrocry stals 100 mg capsule TAKE 1 CAPSULE BY MOUTH EVERY 12 HOURS FOR 5 DAYS 04/29 completed Not Available Not Available Not Available duloxetine 30 mg capsule,de layed release Take 1 capsule every day by oral route for 30 days. 07/03 completed Not Available Not Available Not Available duloxetine 60 mg capsule,de layed release TAKE 1 CAPSULE BY MOUTH EVERY DAY 12/21 completed Not Available Not Available Not Available ProAir HFA 90 mcg/actuat ion aerosol inhaler Inhale by inhalatio n route for 17 days. 12/21 completed Not Available Not Available Not Available estradiol 0.5 mg/0.5 gram (0.1 %) transderma l gel packet PLEASE SEE ATTACHED FOR DETAILED DIRECTION S 06/12 completed Not Available Not Available Not Available desvenlafa xine succinate ER 50 mg tablet,ext ended release 24 hr TAKE 1 TABLET BY MOUTH EVERY DAY 03/01 completed Not Available Not Available Not Available Alek Lara C spacer 12/21 completed Not Available Not Available Not Available desvenlafa xine succinate ER 25 mg tablet,ext ended release 24 hr TAKE 1 TABLET BY MOUTH EVERY DAY 10/24 completed Not Available Not Available Not Available Vitals Date Recorded Body height Body mass index (BMI) Body weight Heart rate Oxygen saturation Oxygen saturation in Arterial blood by Pulse oximetry Systolic And Diastolic Provider Name and Address Organization Details Last Updated DateTime 4 183.52 cm 25.4 kg/m2 62445.8 8 g 99 /min 98 % 98 % 122/78 mm[Hg] Christi Altman [facility] 4 11:23:17 Date Recorded Body height Body mass index (BMI) Body weight Oxygen saturation Oxygen saturation in Arterial blood by Pulse oximetry Heart rate Systolic And Diastolic Provider Name and Address Organization Details Last Updated DateTime 5 183.52 cm 26.9 kg/m2 28024.4 7 g 96 % 96 % 82 /min 102/66 mm[Hg] Gisell Gaspar [facility] 5 16:17:32 Date Recorded Heart rate Provider Name an d Address Organization Details Last Updated DateTime 04/05/2025 66 /min Tata Bullock O [address] [place] [address], [place], [address], [facility] 04/05/2025 11:35:11 Date Recorded Body height Body mass index (BMI) Body weight Oxygen saturation Oxygen saturation in Arterial blood by Pulse oximetry Systolic And Diastolic Provider Name and Address Organization Details Last Updated DateTime 5 183.52 cm 26.9 kg/m2 38455.4 7 g 97 % 97 % 130/76 mm[Hg] Adriana Levimond [facility] 5 11:16:28 Date Recorded Body height Body mass index (BMI) Body weight Oxygen saturation Oxygen saturation in Arterial blood by Pulse oximetry Heart rate Systolic And Diastolic Provider Name and Address Organization Details Last Updated DateTime 5 183.52 cm 26 kg/m2 07294.3 3 g 98 % 98 % 90 /min 106/74 mm[Hg] Gisell Millerclaudia [facility] 5 11:57:30 Date Recorded Body height Body mass index (BMI) Body weight Heart rate Oxygen saturation Oxygen saturation in Arterial blood by Pulse oximetry Systolic And Diastolic Provider Name and Address Organization Details Last Updated DateTime 4 183.52 cm 26.9 kg/m2 60618.4 7 g 98 /min 97 % 97 % 100/60 mm[Hg] Giovanni Meza, DO [address] [place], [address], [facility] 4 15:58:51 Social History Question Answer Notes LastModified by Organizat ion Details LastModified Time Tobacco Smoking Status Never Smoker [facility] 04/21/2018 15:22:54 What Was The Date Of Your Most Recent Tobacco Screening? 06/12/2025 [email or web address] Information not available 06/12/2025 Sex: Unknown Functional Status Question Answer Note LastModified by Organization D etails LastModified Time Do you or have you ever used any other forms of tobacco or nicotine? No [email or web address] Information not available 04/29/2023 Mental Status None recorded. Family History Nothing Reported. Medical History No medical history recorded. Gynecological HistoryNo gynecological history recorded. Obstetrics History GPAL:G 0 P 0 0 0 0 Immunizations Vaccine Type Date Status Note Provider Nam e and Address Organization Details Recorded Time influenza, unspecified formulation [address] [facility] 04/29/2023 08:53:21 Tdap 1 completed MERCED Bedolla [address] [place], [address], [facility] 04/21/2018 15:36:04 Influenza, split virus, quadrivalent, preservative 0 completed Tonia mcfarland [facility] 04/29/2023 08:53:21 COVID-19, mRNA, LNP-S, PF, 100 mcg/0.5mL dose or 50 mcg/0.25mL dose 1 completed Tonia Howellllbria mcfarlnad [facility] 04/29/2023 08:53:21 COVID-19, mRNA, LNP-S, PF, 100 mcg/0.5mL dose or 50 mcg/0.25mL dose 1 completed Tonia mcfarland [facility] 04/29/2023 08:53:21 Tdap 1 completed Kaur mcfarland [facility] 12/28/2020 08:05:43 Past Encounters Encounter ID Performer Location Encounter Start Date Encounter Closed Date Diagnosis/Indication Diagnosis SNOMED-CT Code Diagnosis ICD10 Code Diagnosis IMO Codes Diagnosis Note [id number] Giovanni Meza [address], [place] [address] 04/21/2018 15:07:38 04/21/2018 15:54:48 Adult health examination 464484904 Z00.00 Fatigue 40602397 R53.83 many sx suggestive of possible depression or thyroid issue will check labs and then consider treatment if labs are normal will schedule f/u in 1-2 weeks [id number] Giovanni Meza [facility] [address] [facility] [address] 05/05/2018 15:41:42 05/07/2018 08:56:08 Moderate recurrent major depression 83492420 F33.1 pt will call with update if everything going well she will f/u if she would like to make med change or dose increase due to difficulty having time to come to dr visits we will postpone 8 week f/u unless she is having an issue with the new medication Fatigue 38651414 R53.83 persists, suspect depression and stress related [id number] Giovanni Meza [facility] [address] [facility] [address] 11/30/2018 11:37:39 11/30/2018 12:23:23 Bilateral knee pain 6930616459 4161465 M25.561 M25.562 r/o fx ice rest brace naproxen Fall due t o slipping on ice or snow 708537704 W00.0XXA [id number] Giovanni Meza [facility] [address] [facility] [address] 05/20/2019 14:00:30 05/20/2019 15:12:15 Adult health examination 811263501 Z00.00 doing great no major issues Active or passive immunization 262105051 Z23 [id number] Giovanni Meza [facility] [address] [facility] [address] 01/25/2020 09:44:43 01/25/2020 11:29:28 Panic attack 443302154 F41.0 start meds as discussed and will see in 3 weeks Bilateral knee pain 1187 588593 2310347 M25.561 seem to be baseline no new changges in med tx Neurogenic urinary bladder 048181031 N31.9 stable but definately more of an issue with stress [id number] Giovanni Meza [facility] [address] [facility] [address] 02/15/2020 14:46:26 02/15/2020 15:44:46 Panic attack 065567187 F41.0 start meds as discussed and will see in 3 weeks will need to lose lorazepam [id number] Giovanni Meza [facility] [address] [facility] [address] 02/29/2020 15:35:47 02/29/2020 16:10:23 Pain of multiple joints 27686945 M25.50 Abnormal weight loss 267 885310 R63.4 [id number] Giovanni Meza [facility] [address] [facility] [address] 03/09/2020 15:59:02 03/09/2020 16:36:04 Cellulitis 126076901 L03.90 Anxiety 43567397 F41.9 cont current sx tx will see couple months [id number] Giovanni Meza [facility] [address] [facility] [address] 04/06/2020 14:55:11 04/06/2020 15:17:08 Cellulitis of breast 84019718 N61.0 will start doxycyc [id number] Giovanni Meza [facility] [address] [facility] [address] 12/21/2020 10:53:32 12/21/2020 12:18:45 Active or passive immunization 874977462 Z23 Adult heal th examination 101577283 Z00.00 doing great no major issues [id number] Giovanni Meza [facility] [address] [facility] [address] 02/06/2021 09:43:53 02/06/2021 13:48:12 Depressive disorder 72535904 F32.9 long discussion [id number] Giovanni Meza [facility] [address] [facility] [address] 02/18/2021 13:28:27 02/18/2021 14:16:11 Anxiety 70210439 F41.9 cont current sx tx will see couple months Edema of l ower extremity 791862127 R60.0 we will watch and observe over the next 2 weekss if worse she will stop and rechk in weeks [id number] Giovanni Mzea [facility] [address] [facility] [address] 03/04/2021 15:45:26 03/04/2021 16:35:27 Anxiety 75538917 F41.9 so we will try pristiq Major depr essive disorder 965331069 F32.9 [id number] Giovanni Meza [facility] [address] [facility] [address] 04/22/2021 16:17:50 04/23/2021 08:35:12 Anxiety 55303776 F41.9 so we will try pristiq Moderate r ecurrent major depression 80523553 F33.1 [id number] Giovanni Daniel Amarilis, [facility] [address] [facility] [address] 06/05/2021 11:07:19 06/05/2021 13:41:18 Anxiety [id number] F41.9 so we will try pristiq Acne 41705443 L70.9 [id number] Giovanni Fredy Amarilis [facility] [address] [facility] [place] [address] 07/10/2021 08:11:52 07/10/2021 13:47:08 Anxiety 22853123 F41.9 we will cont the desvenalpieter causey and she is doing goodchange the work environmen t [id number] Giovanni McmullenMeliton Amarilis [facility] [address] [facility] [place] [address] 08/02/2021 09:17:26 08/02/2021 10:08:13 Anxiety 70618699 F41.9 we will cont the desvenmo causey and she is doing goodchangi ng the [facility] and she is feeling much more stable [id number] Giovanni Meza [facility] [address] [facility] [address] [place] [address] 02/28/2022 13:32:01 02/28/2022 15:06:22 Active or passive immunization [id number] Z23 Adult heal th examination 436496223 Z00.00 doing great no major issues Moderate r ecurrent major depression 46117116 F33.1 stable and doing well Allergic rhinitis 153930 04 J30.9 [id number] Giovanni Meza [facility] [address] [facility] [place] [address] 10/24/2022 13:36:22 10/27/2022 16:34:29 Anxiety 20706419 F41.9 missed taking her meds but didnt call also out of lorazepam and didnnt callso she has clearly decompensa tedwe will restart her meds and get guanakito on this and we will talk to her next week and see how she is doing Moderate r ecurrent major depression 73159143 F33.1 obviously struggling now with her meds gone she will be immediatel y restarted and will keep tabs on heralso we will eval the poss of adhd in adult but i am not so sure [id number] Giovanni Meza, [facility] [address] [facility] [place] [address] 10/29/2022 08:42:26 10/31/2022 10:25:47 Anxiety 19860211 F41.9 markesly better now that she is taking medsnot having any major issues like before she is very fatigued at end of the day and she sleeps a lot but is back to work and doing goodwe will cont the current doses looking to increase if she plateaus will see her in 4 weekswe will then [place] [id number] Giovanni Meza [facility] [address] [facility],[place] [address] 11/26/2022 10:41:57 11/26/2022 12:02:22 Vertigo [id number] R42 will set up with STAT CT Headache 98383482 R51.9 unusual presentati on for a non-headac he sufferer [id number] Giovanni Meza [facility] [address] [facility],[place] [address] 12/02/2022 08:50:45 12/02/2022 11:19:41 Altered mental status 563808443 R41.82 we will need to have her get abn mri [id number] Giovanni Meza [facility] [address] [facility] [place] [address] 12/17/2022 11:15:24 12/17/2022 12:58:26 Moderate recurrent major depression 94408523 F33.1 obviously struggling now with her meds gone she will be immediatel y restarted and will keep tabs on heralso we will eval the poss of adhd in adult but i am not so sure Ataxia 47933635 R27.0 given her presentati on i am worried about a poss seizure episode Transient altered mental status 385005817 R41.82 given onset and presentati on we are worried about poss seiz disorder or intracrani al pathology [id number] Giovanni Meza [facility] [address] [facility] [address] [place] [address] 04/29/2023 08:53:08 04/29/2023 09:58:02 Active or passive immunization 205814018 Z23 Adult heal th examination 216457756 Z00.00 doing great no major issues [id number] Giovanni Meza [facility] [address] [facility] [place] [address] 09/30/2023 07:50:53 09/30/2023 13:47:57 Transient altered mental status 442558076 R41.82 given onset and presentati on we are worried about poss seiz disorder or intracrani al pathology Moderate r ecurrent major depression 16922310 F33.1 actually doing ok Adult heal th examination 664715314 Z00.00 doing great no major issues Active or passive immunization 369505904 Z23 stable and is up to date [id number] Giovanni Meza [facility] [address] [facility] [address] [place] [address] 12/21/2023 11:08:42 12/21/2023 12:08:21 Chronic sinusitis 16700121 J32.9 ongoing issues had been on shots in past Moderate r ecurrent major depression 36742194 F33.1 actually doing ok Depressive disorder 6808 9007 F32.9 long discussion [id number] Giovanni Meza [facility] [address] [facility] [place] [address] 08/23/2024 15:32:55 08/23/2024 16:25:07 Menopausal symptom 00629482 E89.41 is on estrog patch doing better can try black cohosh [id number] Giovanni Meza DO [facility] [address] [facility] [address] 03/01/2025 16:04:23 03/01/2025 16:44:08 Depression screening 842022436 Z13.31 pos Attention deficit hyperactivity disorder, 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 92925282 will start the low dose dextro [id number] Giovanni Daniel Amarilis [facility] [address] [facility] [address] 04/05/2025 11:11:42 04/05/2025 13:55:03 Depression screening 622705586 Z13.31 pos Attention deficit hyperactivity disorder, predominantly inattentive type 18033723 F90.0 91869043 will start the low dose dextro Anxiety 13799776 F41.9 markesly better now that she is taking medsnot having any major issues like before she is very fatigued at end of the day and she sleeps a lot but is back to work and doing goodwe will cont the current doses looking to increase if she plateaus will see her in 4 weekswe will then discuss poss add dx [id number] Giovanni Wetzelangie [facility] [address] [facility] [address] [facility] [place] [address] 06/12/2025 11:52:30 06/12/2025 14:56:01 Depression screening 407138695 Z13.31 pos Attention deficit hyperactivity disorder, predominantly inattentive type 84418211 F90.0 00526905 doing well but is working overtime and is having her sx occur laterrelat es that she is wondering how to addressdis cussed in detail Depressed mood 031182047 R45.89 5627714 Moderate r ecurrent major depression 10664377 F33.1 stable and is doing ok Seasonal a llergic rhinitis 536683877 J30.2 Health Concerns Section Related Observation LastModified by Organization Lisa ls LastModified Time None Recorded Concern Status LastModified by Organization Details LastModified Time None Recorded Advance Directives Directive None Recorded Payers Insurance Date Sequence Insurance Name Policy Number Policy Olivares Covered Member ID Olivares Member ID Guarantor Name 06/09/2025 1 [facility]: [employer] German Becerril [id number] Kristen Becerril Notes Date Note Type Note Provider Name and Address Organization Details Recorded Time 12/21/19 24 text/htm l ROS as noted in the HPI here for tamara and is doing so sorelates that she has been down and wants to treat this Giovanni Daniel Amarilis, DO [address] [place], [address], [facility] 12/21/2023 12:03:23 08/23/20 24 text/htm l ROS as noted in the HPI here for tamara and is doing bettersince she had a hysterectomydomg much betterno longer having any pelvic painand her bowels have even gotten better Giovanni Meza, DO [address] [place], [address], [facility] 08/23/2024 16:22:30 03/01/20 25 text/htm l ROS as noted in the HPI here for tamara and is working hard and is doing multiple jobs at work and going to a [employer] for [employer] and also is continuing her writing long detailed discussion re attention span and focus i believe she has ADD adult and we priyanka have her try a low dose dextro after filling out the form and is obviously pos Giovanni Meza, DO [address] [place], [address], [facility] 03/01/2025 16:43:35 04/05/20 25 text/htm l Anxiety/DepressionReported by PatientHPIFor severity, patient reportsdenies suicidal ideations,able to maintain relationships, anddoes not interfere with activities of daily living. For context, patient reportsno major life stressors. For associated symptoms, patient reportsdenies homicidal ideations,no significant weight gain,no significant weight loss,no visual/auditory hallucinations,no delusions,no shortness of breath,mood good,no anxiety,no crying spells,no panic,no isolation,sleeping well,appetite good,energy good,no apathy, andmaintaining functionality. ADHDReported by PatientHPIFor school performance, patient reportsno issueandchild is learning. For school support, patient reportswell supportedandteachers are very involved. For organization, patient reportsgood organization. For appetite, patient reportsnormal appetiteandno binge eating. For mood, patient reportsstable. For sleep, patient reportsgoodandadequate sleep, not tired at school. For friends, patient reportswell connected with peers. For family, patient reportsno new stressors. For attention, patient reportsable to focus. For hyperactivity, patient reportsis not hyperactiveanddoes not fidget/squirm. For impulsivity, patient reportsis not impulsive. For tasking, patient reportsable to initiate tasks,able to complete tasks,able to move on to the next task, andmulti-tasking. 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 and also is continuing her writing long detailed discussion re attention span and focus i believe she has ADD adult and we priyanka have her try a low dose dextro after filling out the form and is obviously pos Giovanni Meza DO [address] [place] [address], [address], [facility] 04/05/2025 11:37:04 06/12/20 25 text/htm l ROS as noted in the HPI here for rechk and is doing okis under stress at work due to the cut backs at the [employer] Giovanni Meza DO [address] [place], [address], [facility] 06/12/2025 12:23:15 OBGyn Episode No OBEpisode recorded.
--- OUTSIDE RECORDS SUMMARY | 2025-07-22 07:45 | XMS_ITS | Encounter Summary ---
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 It is not the complete legal health record.[facility]
--- OUTSIDE RECORDS SUMMARY | 2025-07-22 07:45 | XMS_ITS | Encounter Summary ---
Author Organization [facility] Address [address] [place] [address] Phone Care Team Providers Care Animation Artist Name Role Phone Damariangie Giovanni Mcmullne DO Unavailable Javier Soriano MD Unavailable Giovanni Olmos DO Primary Care Provider [phone] Encounter Details Date Type Department Care Team (Latest Contact Info) Description 08/09/2019 Transcribe Orders Virtual Department [address] [place] [address] Mark Thacker MD [address] [place] [address], [address] [address] [email or web address] Other microscopic hematuria (Primary Dx) Social History Tobacco Use Types Packs/Day Years [...] 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 No shadowing renal stones demonstrated. POS - [id number] Narrative 10/04/2019 9:24 AM EST EXAM: US KIDNEYS ULTRASOUND KIDNEYS HISTORY: OTHER MICROSCOPIC HEMATURIA COMPARISON: September 23, 2018 FINDINGS: RIGHT KIDNEY: The right kidney is within normal limits for size and measures 10.1 cm in sagittal dimension. Parenchyma is within normal limits. Cortical thickness and echogenicity are within normal limits. No hydronephrosis, focal lesions, or shadowing stones demonstrated. LEFT KIDNEY: The left kidney is within normal limits for size and measures 11.0 cm in sagittal dimension. Parenchyma is within normal limits. Cortical thickness and echogenicity are within normal limits. No hydronephrosis, focal lesions, or shadowing stones demonstrated. Procedure Note Ozzy Dueñas MD - 10/04/2019 EXAM: US KIDNEYS ULTRASOUND KIDNEYS HISTORY: OTHER MICROSCOPIC HEMATURIA COMPARISON: September 23, 2018 FINDINGS: RIGHT KIDNEY: The right kidney is within normal limits for size andmeasures 10.1 cm in sagittal dimension. Parenchyma is within normallimits. Cortical thickness and echogenicity are within normal limits. Nohydronephrosis, focal lesions, or shadowing stones demonstrated. LEFT KIDNEY: The left kidney is within normal limits for size and .0 cm in sagittal dimension. Parenchyma is within normal limits.Cortical thickness and echogenicity are within normal limits. Nohydronephrosis, focal lesions, or shadowing stones demonstrated. IMPRESSION: Normal study. No shadowing renal stones demonstrated. POS - [id number] Mark Thacker MD [facility] RENAL Final Result documented in this encounter Visit Diagnoses Diagnosis Other microscopic hematuria- Primary Other microscopic hematuria documented in this encounter Care Teams Animation Artist Relationship Specialty Start Date End Date Giovanni Olmos DO [address] [place] [address], [facility] [address] [place] [address] PCP - General 10/01/17 Giovanni Olmos DO [address] [facility] [place] [address] [place] [address] [email or web address] Historical LMR Provider 07/16/17 10/05/21 Javier Soriano MD [address] [place] [address] [address] [place] [address] [email or web address] Historical LMR Provider 07/16/17 10/05/21 documented as of this encounter Additional Source Comments The information contained in this document represents components of the legal health record. It is not the complete legal health record.[facility]
--- OUTSIDE RECORDS SUMMARY | 2025-07-22 07:46 | XMS_ITS | Encounter Summary ---
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 on file student Not on file Not on file Not on file documented as of this encounter Plan of Treatment Not on file documented as of this encounter Visit Diagnoses Not on filedocumented in this encounter Care Teams Numerical Control Nesting Operator Relationship Specialty Start Date End Date Giovanni Olmos DO [address] [facility], [facility] [address] [place] [address] PCP - General 10/01/17 Giovanni Olmos DO [address] [place] [address] [place] [address] Historical LMR Provider 07/16/17 10/05/21 Javier Soriano MD 22 [facility] [address] [place] [address] Historical LMR Provider 07/16/17 10/05/21 documented as of this encounter Additional Source Comments The information contained in this document represents components of the legal health record. It is not the complete legal health record.[facility]
--- OUTSIDE RECORDS SUMMARY | 2025-07-22 07:46 | XMS_ITS | Encounter Summary ---
Author Organization [facility] Address [address] [place] [address] Phone Care Team Providers Care Runway Model Name Role Phone Amarilis Giovanni Mcmullen DO Unavailable Javier Soriano MD Unavailable Giovanni Olmos DO Primary Care Provider [phone] Encounter Details Date Type Department Care Team (Latest Contact Info) Description 06/04/2018 Ancillary Orders Virtual Department [address] [place] [address] Mark Thacker MD [address] [place] [address], [address] [address] 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 Normal kidneys. Normal bladder. No significant post void bladder residual. Normal ureteral jets. POS - [id number] Narrative 09/23/2018 11:59 AM EST EXAM: US KIDNEYS AND BLADDER HISTORY: Other hydronephrosis COMPARISON: 02/17/2017 ultrasound. FINDINGS: Kidneys: Right kidney: Measures 10.1 x 4.3 cm. Cortical echogenicity is normal. Normal cortical thickness. There is no hydronephrosis or mass. There are no shadowing calculi. Left kidney: Measures 11.1 x 4.3 cm. Cortical echogenicity is normal. Normal cortical thickness. There is no hydronephrosis or mass. There are no shadowing calculi. Urinary Bladder: Prevoid bladder volume is 705.4 mL. Following voiding, the bladder is completely empty. There is no bladder wall thickening or mass. Bilateral Uretal Jets: Visualized bilaterally. Procedure Note Berta Chavez MD - 09/23/2018 EXAM: US KIDNEYS AND BLADDER HISTORY: Other hydronephrosis COMPARISON: 02/17/2017 ultrasound. FINDINGS: Kidneys: Right kidney: Measures 10.1 x 4.3 cm. Cortical echogenicity is normal.Normal cortical thickness. There is no hydronephrosis or mass. There areno shadowing calculi. Left kidney: Measures 11.1 x 4.3 cm. Cortical echogenicity is normal.Normal cortical thickness. There is no hydronephrosis or mass. There areno shadowing calculi. Urinary Bladder: Prevoid bladder volume is 705.4 mL. Following voiding,the bladder is completely empty. There is no bladder wall thickening ormass. Bilateral Uretal Jets: Visualized bilaterally. IMPRESSION: No hydronephrosis or shadowing renal calculi. Normal kidneys. Normal bladder. No significant post void bladder residual. Normal ureteraljets. POS - [id number] Mark Thacker MD [facility] US RENAL Final Result documented in this encounter Visit Diagnoses Diagnosis Other hydronephrosis Other hydronephrosis documented in this encounter Care Teams Runway Model Relationship Specialty Start Date End Date Giovanni OlmosDO [address] [address] PCP - General 10/01/17 DamariangieGiovanni KemiDO [address] [place] [address] Historical LMR Provider 07/16/17 10/05/21 Javier Soriano MD [address] [address] Historical LMR Provider 07/16/17 10/05/21 documented as of this encounter Additional Source Comments The information contained in this document represents components of the legal health record. It is not the complete legal health record.[facility]
--- OUTSIDE RECORDS SUMMARY | 2025-07-22 07:46 | XMS_ITS | Encounter Summary ---
Author Organization [facility] Address [address] [place] [address] Phone Care Team Providers Care Gynecologist Name Role Phone Giovanni Olmos DO Primary Care Provider [phone] Encounter Details Date Type Department Care Team (Late st Contact Info) Description 04/21/2023 Procedure Pass OR Admitting Dept - Virtual Department [address] [place] [address] Social History Tobacco Use Types Packs/Day Years [...] with a working camera? 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 It is not the complete legal health record.[facility]
== END 2025-07-22 07:43 | disposition home or self-care (01) ==
LOC: HO.XRAY 07:42
PROVIDERS: PCP Internal Medicine; Visit Provider Internal Medicine
DX: M53.3 Sacrococcygeal disorders, not elsewhere classified (principal)
CPT/HCPCS: 72220

== ENCOUNTER → 2025-07-22 07:56 | Outpatient (BNV) | payer BC, SELFPAY | PROVIDERS: PCP Internal Medicine; Visit Provider Radiology Diagnostic Radiology | DX: M53.3 Sacrococcygeal disorders, not elsewhere classified (principal); M41.87 Other forms of scoliosis, lumbosacral region | CPT/HCPCS: 72220 ==